=== PATIENT | female | born 1980 | race Caucasian/White ===

== ENCOUNTER 2020-07-07 04:14 | Day surgery (SDC) | payer OTHER ==
[2020-07-07 04:54] LABS: BASOPHIL 0.5 % (0-2); EOSINOPHIL 2.3 % (0-5); HCT 40.9 % (37.0-47.0); HGB 13.1 g/dl (12.5-16.0); LYMPHOCYTE 23.2 % (15-48); MCH 27.1 pg (25.0-31.0); MCV 84.7 fL (78.0-100.0); MONOCYTE 5.6 % (0-12); NEUTROPHIL 68.1 % (41-80); NRBC 0; PLT 344 K/uL (150-400); RBC 4.83 M/uL (4.20-5.40); RDW 14.4 % (11.5-14.0); WBC 11.4 K/uL (4.0-10.5)
[2020-07-07 04:58] LABS: INR 1.03 (0.9-1.2); PROTHROMBIN TIME 12.8 SECONDS (11.4-13.6); PTT 32.3 SECONDS (22.2-34.7)
[2020-07-07 05:06] LABS: ALBUMIN 3.5 g/dL (3.4-5.0); BILIRUBIN - TOTAL 0.7 mg/dL (0.2-1.0); BUN/CREAT RATIO (CALC) 14.9 RATIO; CREATININE 0.67 mg/dL (0.51-0.95); GLOBULIN (CALCULATION) 3.9 g/dL; MAGNESIUM 2.1 mg/dL (1.8-2.4); POTASSIUM 3.7 mmol/L (3.5-5.1); TOTAL PROTEIN 7.4 g/dL (6.4-8.2)
[2020-07-07 05:13] LABS: BILIRUBIN NEGATIVE (NEGATIVE); BLOOD 3+ Ery/uL (NEGATIVE); CLARITY HAZY (CLEAR); COLOR YELLOW (YELLOW); GLUCOSE (U) NORMAL (NORMAL); LEUKOCYTES 1+ Leu/uL (NEGATIVE); NITRITE NEGATIVE (NEGATIVE); PROTEIN TRACE (LOW) mg/dL (NEGATIVE); SPECIFIC GRAVITY 1.025 (1.001-1.030); UROBILINOGEN 0.2 mg/dL (0.2-1.0)
[2020-07-07 05:17] LABS: BACTERIA 1+; HCG (URINE) SCREEN NEGATIVE (NEGATIVE)
[2020-07-07] MEDS ORDERED: TOPROL XL25 MG PO (08:53)
[2020-07-07] MEDS ORDERED: IRON PO (08:56)
[2020-07-07] MEDS ORDERED: VITAMIN B-121000 MC1 PO (08:56)
[2020-07-07] MEDS ORDERED: VITAMIN D3 PO (08:56)
[2020-07-07] MEDS ORDERED: PERCOCET 5-3251 EACH PO (17:57)
[2020-07-07] MEDS ORDERED: AUGMENTIN 875-1 EACH PO (17:57)
== END 2020-07-07 19:07 | disposition home or self-care (01) ==
LOC: FER 04:14 → FAS 06:28 → FMS 13:58
PROVIDERS: Emergency Medicine
DX: K80.00 Calculus of gallbladder with acute cholecystitis without obstruction (principal); K42.9 Umbilical hernia without obstruction or gangrene; E66.9 Obesity, unspecified; D64.9 Anemia, unspecified; I49.8 Other specified cardiac arrhythmias; Z20.822 Contact with and (suspected) exposure to COVID-19; Z98.890 Other specified postprocedural states; Z86.010 Personal history of colon polyps
CPT/HCPCS: 36415; 80053; 81001; 83690; 83735; 84145; 84703; 85025; 85610; 85730; 93005; 94010; J1100; J1170; J1885; J2250; J2405; J2543; J2704; J2710; J3010; J3480; J7030; J7120; U0002

== ENCOUNTER 2020-09-14 20:17 | Emergency (ER) | payer OTHER ==
[~2020-09-14 20:17] MED LIST: AUGMENTIN 875-1 EACH PO; IRON PO; PERCOCET 5-3251 EACH PO; TOPROL XL25 MG PO; VITAMIN B-121000 MC1 PO; VITAMIN D3 PO
[2020-09-14 23:18] LABS: INR 1.03 (0.9-1.2); PROTHROMBIN TIME 12.8 SECONDS (11.4-13.6); PTT 23.1 SECONDS (22.2-34.7)
[2020-09-14 23:19] LABS: D-DIMER 1.49 ug/mLFEU (0.00-0.41)
[2020-09-14 23:25] LABS: ALBUMIN 3.9 g/dL (3.4-5.0); BILIRUBIN - DIRECT 0.2 mg/dL (0.00-0.20); BUN/CREAT RATIO (CALC) 13.6 RATIO; CREATININE 0.66 mg/dL (0.51-0.95); POTASSIUM 3.7 mmol/L (3.5-5.1); TOTAL PROTEIN 7.9 g/dL (6.4-8.2)
[2020-09-15 00:11] LABS: BASOPHIL 0.2 % (0-2); EOSINOPHIL 0.2 % (0-5); HCT 43.5 % (37.0-47.0); HGB 14.2 g/dl (12.5-16.0); LYMPHOCYTE 19.8 % (15-48); MCH 27.6 pg (25.0-31.0); MCHC 32.6 g/dL (32.0-36.0); MCV 84.5 fL (78.0-100.0); MONOCYTE 5.1 % (0-12); MPV 10.7 fL (6.0-9.5); NEUTROPHIL 74.4 % (41-80); NRBC 0; RBC 5.15 M/uL (4.20-5.40); RDW 14.1 % (11.5-14.0); WBC 6.6 K/uL (4.0-10.5)
[2020-09-15 00:31] LABS: PLT 103 K/uL (150-400)
[2020-09-15] MEDS ORDERED: CEFDINIR300 MG PO (03:50)
== END 2020-09-15 04:05 | disposition home or self-care (01) ==
LOC: FER 20:17
PROVIDERS: Emergency Medicine
DX: U07.1 COVID-19 (principal); J12.82 Pneumonia due to coronavirus disease 2019
CPT/HCPCS: 36415; 71045; 71275; 80048; 80076; 83605; 84145; 85025; 85379; 85610; 85730; 87040; 87077; 87186; J2405; J7030; Q9967

== ENCOUNTER 2021-03-01 06:37 | Day surgery (SDCO) | payer OTHER ==
[~2021-03-01] VITALS: Ht 165 cm; Wt 135.4 kg
[~2021-03-01 06:37] MED LIST changes: +CEFDINIR300 MG PO
[2021-03-01 07:20] LABS: HCG (URINE) SCREEN NEGATIVE (NEGATIVE)
[2021-03-01 11:53] LABS: BILIRUBIN NEGATIVE (NEGATIVE); BLOOD NEGATIVE Ery/uL (NEGATIVE); CLARITY CLOUDY (CLEAR); COLOR YELLOW (YELLOW); GLUCOSE (U) NORMAL (NORMAL); LEUKOCYTES NEGATIVE Leu/uL (NEGATIVE); NITRITE NEGATIVE (NEGATIVE); PROTEIN NEGATIVE (NEGATIVE); UROBILINOGEN 0.2 mg/dL (0.2-1.0)
[2021-03-01 14:29] LABS: HCT 37.6 % (37.0-47.0); HGB 11.9 g/dl (12.5-16.0); MCH 26.7 pg (25.0-31.0); MCHC 31.6 g/dL (32.0-36.0); MCV 84.5 fL (78.0-100.0); MPV 9.9 fL (6.0-9.5); RBC 4.45 M/uL (4.20-5.40); RDW 15.2 % (11.5-14.0); WBC 16.2 K/uL (4.0-10.5)
[2021-03-01 14:53] LABS: BUN/CREAT RATIO (CALC) 16.1 RATIO; CREATININE 0.62 mg/dL (0.51-0.95); POTASSIUM 4.1 mmol/L (3.5-5.1)
[2021-03-02 05:46] LABS: BASOPHIL 0.3 % (0-2); EOSINOPHIL 0 % (0-5); HCT 36.5 % (37.0-47.0); HGB 11.6 g/dl (12.5-16.0); LYMPHOCYTE 8.9 % (15-48); MCH 26.8 pg (25.0-31.0); MCHC 31.8 g/dL (32.0-36.0); MCV 84.3 fL (78.0-100.0); MONOCYTE 4.5 % (0-12); MPV 9.8 fL (6.0-9.5); NEUTROPHIL 85.8 % (41-80); NRBC 0; PLT 296 K/uL (150-400); RBC 4.33 M/uL (4.20-5.40); WBC 15.2 K/uL (4.0-10.5)
[2021-03-02 06:08] LABS: CREATININE 0.5 mg/dL (0.51-0.95); MAGNESIUM 2.3 mg/dL (1.8-2.4); POTASSIUM 3.8 mmol/L (3.5-5.1)
--- NOTE | 2021-03-02 10:53 | NUR ---
03/02/21 Ms. Paige lives at home with her spouse and 3 children/ She is employed and they are able to meet their financial obligations. No discharge planning needs are anticipated.
[2021-03-02] MEDS ORDERED: PERCOCET 5-3251 EACH PO (13:33)
[2021-03-02] MEDS ORDERED: ONDANSETRON ODT4 MG PO (13:33)
== END 2021-03-02 14:00 | disposition home or self-care (01) ==
LOC: FAS 06:37 → FICU 13:27
PROVIDERS: Anesthesiology; Internal Medicine; ADMIT Student in an Organized Health Care Education/Training Program
DX: E04.1 Nontoxic single thyroid nodule (principal); J95.89 Other postprocedural complications and disorders of respiratory system, not elsewhere classified; J98.11 Atelectasis; A18.01 Tuberculosis of spine; E66.01 Morbid (severe) obesity due to excess calories; Z68.42 Body mass index [BMI] 45.0-49.9, adult; Z72.89 Other problems related to lifestyle
CPT/HCPCS: 36415; 71045; 71046; 80048; 81003; 82330; 83605; 83735; 83880; 84145; 84703; 85025; 93005; 94002; 94010; 94667; G0378; J0690; J1100; J1170; J1644; J1885; J2250; J2370; J2405; J2704; J3010; J7120